=== PATIENT | female | born 1985 | race Caucasian/White ===

== ENCOUNTER 2016-09-11 04:24 | Emergency (ER) | payer OTHER ==
[~2016-09-11] VITALS: Ht 167.6 cm; Wt 136.1 kg
[2016-09-11 04:35] VITALS: BP 173/96
[2016-09-11] MEDS ORDERED: ONDA4TAB10 SL (05:04)
[2016-09-11] MEDS ORDERED: MORP15TA PO (05:04)
--- NOTE | 2016-09-11 05:04 | PHYS DOC ---
Adult General Chief Complaint Chief Complaint: EARACHE/EAR PAIN HPI HPI 22-year-old female with a history of multiple ear infections presents with right ear pain. Her pain is sharp severe nonradiating and mildly alleviated by ibuprofen at home. She has had severe nausea after taking her Augmentin that was prescribed by her primary care physician. Review of systems is negative for chest pain shortness of breath abdominal pain. Positive for nausea and right ear pain. All other review of systems is negative unless otherwise noted in history of present illness. Review of Systems Review of Systems SEE ABOVE. Physical Exam Physical Exam Constitutional: Well developed, well nourished, no acute distress, non-toxic appearance. [] HENT: Normocephalic, atraumatic, bilateral external ears normal, oropharynx moist, no oral exudates, nose normal. The patient's right tympanic membrane is erythematous suggestive of otitis media Eyes: PERRLA, EOMI, conjunctiva normal, no discharge. Neck: Normal range of motion, no tenderness, supple, no stridor. [] Cardiovascular:Heart rate regular rhythm, no murmur Lungs & Thorax: Bilateral breath sounds clear to auscultation [] Abdomen: Bowel sounds normal, soft, no tenderness, no masses, no pulsatile masses. [] Skin: Warm, dry, no erythema, no rash. Back: No tenderness, no CVA tenderness. [] Extremities: No tenderness, no cyanosis, no clubbing, ROM intact, no edema. Neurologic: Alert and oriented X 3, normal motor function, normal sensory function, no focal deficits noted. [] Psychologic: Affect normal, judgement normal, mood normal. [] EKG EKG [] Radiology/Procedures Radiology/Procedures [] Course & Med Decision Making Course & Med Decision Making Pertinent Labs and Imaging studies reviewed. (See chart for details) [] 22-year-old female presenting with right otalgia from otitis media. She was given intramuscular hydromorphone in discharged home with morphine for pain along with Zofran for symptomatic nausea. Patient denied being . Dragon Disclaimer Dragon Disclaimer This electronic medical record was generated, in whole or in part, using a voice recognition dictation system. Departure Departure Impression: Primary Impression: Otitis media Additional Impressions: Otalgia Otalgia of right ear Disposition: HOME, SELF-CARE Condition: STABLE Referrals: CHLOE ANNA MD (PCP) Patient Instructions: Otitis Media, Adult Additional Instructions: Thank you for allowing us to participate in your care today. Followup with your primary care physician in 3 days if your symptoms do not improve. If you do not have a primary care provider you can ask for a list of our primary care providers. Return to the emergency department you have any new or concerning findings. This should be evaluated by the primary care physician and any necessary consulting services for continued management within a few days after discharge. Return to emergency room if you have any new or concerning symptoms including but not limited to fever, chills, nausea, vomiting, intractable pain, any new rashes, chest pain, shortness of air, uncontrolled bleeding, difficulty breathing, and/or vision loss. You may have been prescribed medication that can change in your level of thinking and ability to operate machinery. These medications include hydrocodone and Ativan. Also, Benadryl has been known to do this as well. Be sure to check with your pharmacist and ask if the medications you've prescribed can affect your level of consciousness. I recommend not operating heavy machinery or driving while on medication such as these. Scripts Ondansetron (Zofran Odt)4 Mg Tab.rapdis1 Tab SL PRN Q8HRS PRN NAUSEA #6 TAB Prov:JORGE L MG MD 09/11/16 Morphine Sulfate 15 Mg Tablet1 Tab PO PRN Q6-8HRS PRN SEVERE PAIN #8 TAB Prov:JORGE L MG MD 09/11/16 Problem Qualifiers JORGE L MG MD Sep 11, 2016 05:04
[2016-09-11] MEDS ORDERED: HYDROMORPHONE 2 MG/ML VIAL. IM ONE (05:30)
== END 2016-09-11 05:27 | disposition home or self-care (01) ==
LOC: ER 04:24
DX: H66.91 Otitis media, unspecified, right ear (principal); R11.0 Nausea
CPT/HCPCS: 81025; 96372; 99283; J1170